=== PATIENT | female | born 1995 ===

== ENCOUNTER 2018-09-10 18:54 | Inpatient (IN) | payer OTHER ==
[2018-09-10 19:34] LABS: BHCG - Serum Negative (NEGATIVE); Pregs Control Background? CLEAR/WHITE (CLR/WHITE); Pregs Control Bar Appear? YES (CONTROL BAR)
[2018-09-10 19:38] LABS: Band 2 % (5-11); Eosinophils 1 % (0-10); Hemoglobin 12.9 g/dL (12.0-16.0); Lymphocytes 30 % (21-51); MDiff Complete? YES; Mean Corpuscular HGB CONC 32.4 g/dL (32.0-36.0); Mean Corpuscular Hemoglobin 29.2 pg (27.0-31.0); Mean Corpuscular Volume 90.3 fL (78.0-98.0); Mean Platelet Volume 8.3 fL (7.4-10.4); Monocytes 5 % (0-10); Neutrophil 57 % (42-75); PLT Morphology Comment Appears Adequate; Platelet Count 203 thou/uL (130-400); RBC Distribution Width 11.5 % (11.5-14.5); Reactive Lymphocytes 4 % (0-10); Red Blood Cell (RBC) Count 4.42 mill/uL (4.20-5.40); White Blood Cell (WBC) Count 7.2 thou/uL (4.8-10.8)
[2018-09-10 19:45] LABS: Anion Gap 14 mmol/L (10-20); BUN (Urea Nitrogen) 8 mg/dL (7.0-18.7); Calc. Creatinine Clearance 0 mL/min (70-130); Calcium 9.6 mg/dL (7.8-10.44); Carbon Dioxide 24 mmol/L (22-29); Chloride 106 mmol/L (98-107); Estimated GFR-MDRD 76; Glucose 85 mg/dL (70-105); Potassium 4.1 mmol/L (3.5-5.1); Sodium 140 mmol/L (136-145)
[2018-09-10 20:01] LABS: CK (CPK) 29352 U/L (29-168)
[2018-09-10 22:10] VITALS: BMI 25.2
[2018-09-10] MEDS ORDERED: Ondansetron ODT 4 MG TAB SL PRN (22:13)
[2018-09-10] MEDS ORDERED: Ondansetron HCl/PF 4 MG/2 ML Vial IVP PRN (22:13)
[2018-09-10] MEDS: Sodium Chloride 0.9% 1,000 ML IV SCH (22:20)
[2018-09-10 23:57] LABS: Anion Gap 9 mmol/L (10-20); BUN (Urea Nitrogen) 8 mg/dL (7.0-18.7); Calc. Creatinine Clearance 145 mL/min (70-130); Calcium 8.4 mg/dL (7.8-10.44); Carbon Dioxide 23 mmol/L (22-29); Chloride 110 mmol/L (98-107); Estimated GFR-MDRD Greater than 90; Glucose 91 mg/dL (70-105); Sodium 138 mmol/L (136-145)
[2018-09-11 00:24] LABS: CK (CPK) 21130 U/L (29-168)
[2018-09-11] MEDS: Acetaminophen 325 MG TAB PO PRN ×4 (00:30→20:08)
[2018-09-11] MEDS: Sodium Chloride 0.9% 1,000 ML IV SCH ×2 (11:45→16:00)
[2018-09-11 12:43] LABS: Anion Gap 7 mmol/L (10-20); BUN (Urea Nitrogen) 6 mg/dL (7.0-18.7); Calc. Creatinine Clearance 160 mL/min (70-130); Calcium 8.1 mg/dL (7.8-10.44); Carbon Dioxide 22 mmol/L (22-29); Chloride 112 mmol/L (98-107); Estimated GFR-MDRD Greater than 90; Glucose 84 mg/dL (70-105); Potassium 3.9 mmol/L (3.5-5.1); Sodium 137 mmol/L (136-145)
[2018-09-11] MEDS ORDERED: Guaifenesin DM 100-10/5 ML UDCUP PO PRN (13:25)
[2018-09-11 16:16] LABS: #Basophils 0.1 thou/uL (0.0-0.2); #Eosinphils 0.1 thou/uL (0.0-0.7); #Monocytes 0.4 thou/uL (0.11-0.59); %Basophils 1.2 % (0.0-1.0); %Eosinophils 2.7 % (0.0-10.0); %Lymphocytes 43.1 % (21.0-51.0); %Monocytes 9.3 % (0.0-10.0); %Neutrophils 43.8 % (42.0-75.0); Hemoglobin 11.5 g/dL (12.0-16.0); Mean Corpuscular HGB CONC 32.2 g/dL (32.0-36.0); Mean Corpuscular Hemoglobin 30.5 pg (27.0-31.0); Mean Corpuscular Volume 94.8 fL (78.0-98.0); Mean Platelet Volume 7.6 fL (7.4-10.4); Platelet Count 187 thou/uL (130-400); RBC Distribution Width 11.3 % (11.5-14.5); Red Blood Cell (RBC) Count 3.77 mill/uL (4.20-5.40); White Blood Cell (WBC) Count 4.5 thou/uL (4.8-10.8)
[2018-09-11 16:28] LABS: CK (CPK) 14947 U/L (29-168)
[2018-09-11] MEDS: Famotidine 20 MG TAB PO SCH (19:56)
--- NOTE | 2018-09-11 21:38 | HP ---
REASON FOR ADMISSION: Acute rhabdomyolysis. HISTORY OF PRESENTING ILLNESS: The patient gives history of working out/ intense exercises from Friday on her both upper extremities. She started to develop swelling in her upper extremities and pain. On Friday, this got worse. She normally exercises on a regular basis, but has been doing increased workup from Friday on for her upper extremities. Her CK levels were 23,000 and patient was admitted from the ER. Has no complaints of chest pain or palpitation. No complaints of shortness of breath. No history of hereditary diseases or sickle cell/hemoglobinopathy. PAST MEDICAL/SURGICAL HISTORY: Adenoidectomy, myringotomy tubes placed when she was a kid and attention deficit disorder. CURRENT MEDICATIONS: Takes control pills, Vyvanse. ALLERGIES: No known drug allergies. PERSONAL HISTORY: Does not abuse alcohol or drugs. No history of smoking. She is a [employer] student. FAMILY HISTORY: Both parents are healthy. CODE STATUS: FULL. REVIEW OF SYSTEMS: The following complete review of systems was negative, unless otherwise mentioned in the HPI or below: Constitutional: Weight loss or gain, ability to conduct usual activities. Skin: Rash, itching. Eyes: Double vision, pain. ENT/Mouth: Nose bleeding, neck stiffness, pain, tenderness. Cardiovascular: Palpitations, dyspnea on exertion, orthopnea. Respiratory: Shortness of breath, wheezing, cough, hemoptysis, fever or night sweats. Gastrointestinal: Poor appetite, abdominal pain, heartburn, nausea, vomiting, constipation, or diarrhea. Genitourinary: Urgency, frequency, dysuria, nocturia. Musculoskeletal: Pain, swelling. Neurologic/Psychiatric: Anxiety, depression. Allergy/Immunologic: Skin rash, bleeding tendency. PHYSICAL EXAMINATION: GENERAL: The patient is a 23-year-old female who is currently not in any acute distress. VITAL SIGNS: Blood pressure 116/82, pulse 80 per minute, respiratory rate 20 per minute, temperature 98.9 degrees Fahrenheit, saturating 100% on room air. NECK: Supple, no elevated JVD. EYES: Extraocular muscles intact. Pupils reacting to light. ORAL CAVITY: Mucous membranes are moist. No exudates or congestion. CARDIOVASCULAR SYSTEM: S1, S2 heard. Regular rhythm. RESPIRATORY SYSTEM: Air entry 2+ bilateral. No rales or rhonchi. ABDOMEN: Soft, bowel sounds heard. No tenderness, rigidity or guarding. EXTREMITIES: No peripheral edema or calf tenderness. VASCULAR SYSTEM: Peripheral pulses 2+ bilateral, no ischemic ulcerations or gangrene. CENTRAL NERVOUS SYSTEM: No gross focal deficits noted. Patient is alert, awake , oriented well. PSYCHIATRIC SYSTEM: The patient's mood is euthymic. No hallucinations or delusions. LABORATORY DATA: White count of 7, hemoglobin and hematocrit 12 and 39, platelet count 203 with 57% neutrophils. Electrolytes are stable. BUN 8, creatinine 0.9, serum bicarbonate 24. CK level is 29,352. Serum test is negative. CLINICAL IMPRESSION AND PLAN: Patient will be admitted to medical floor for acute rhabdomyolysis due to the intense exercises. She will be on normal saline at 100 mL per hour. We will follow up with serial CK levels. We will continue her oral contraceptive as before. She can use her home dose of Vyvanse for ADD. Discussed her findings and the current plan with patient and her mom who is here at bedside. SHO
[2018-09-12] MEDS: Sodium Chloride 0.9% 1,000 ML IV SCH ×3 (01:00→20:44)
[2018-09-12 05:14] LABS: #Eosinphils 0.1 thou/uL (0.0-0.7); #Lymphocytes 2.1 thou/uL (1.20-3.40); #Monocytes 0.4 thou/uL (0.11-0.59); %Basophils 0.6 % (0.0-1.0); %Eosinophils 3.2 % (0.0-10.0); %Lymphocytes 45.7 % (21.0-51.0); %Monocytes 7.6 % (0.0-10.0); %Neutrophils 42.9 % (42.0-75.0); Hemoglobin 11.5 g/dL (12.0-16.0); Mean Corpuscular Hemoglobin 31.3 pg (27.0-31.0); Mean Corpuscular Volume 94.8 fL (78.0-98.0); Mean Platelet Volume 7.7 fL (7.4-10.4); Platelet Count 193 thou/uL (130-400); RBC Distribution Width 11.2 % (11.5-14.5); Red Blood Cell (RBC) Count 3.69 mill/uL (4.20-5.40); White Blood Cell (WBC) Count 4.6 thou/uL (4.8-10.8)
[2018-09-12 05:34] LABS: Anion Gap 9 mmol/L (10-20); BUN (Urea Nitrogen) 7 mg/dL (7.0-18.7); Calc. Creatinine Clearance 155 mL/min (70-130); Calcium 8.4 mg/dL (7.8-10.44); Carbon Dioxide 24 mmol/L (22-29); Chloride 110 mmol/L (98-107); Estimated GFR-MDRD Greater than 90; Glucose 91 mg/dL (70-105); Potassium 3.5 mmol/L (3.5-5.1); Sodium 139 mmol/L (136-145)
[2018-09-12] MEDS: Famotidine 20 MG TAB PO SCH ×2 (08:58→20:44)
[2018-09-12] MEDS: Enoxaparin Sodium 40 MG/0.4 ML SYRINGE SC SCH (08:59)
[2018-09-12] MEDS ORDERED: NORETHINDRONE AC ETH ESTRADIOL PO SCH (09:00)
--- NOTE | 2018-09-12 10:30 | PDOC.PN ---
- Subjective Encounter Start Date: 09/12/18 Encounter Start Time: 10:27 Doing well. Still has some muscle soreness. Ambulating. Has some edema in the arms. - Objective Resuscitation Status: Resuscitation Status FULL:Full Resuscitation Vital Signs & Weight: Vital Signs (12 hours) Temp Pulse Resp BP Pulse Ox 09/12/18 08:00 98.1 F 72 16 112/70 97 Weight Weight 175 lb 8 oz Result Diagrams: 09/12/18 04:29 09/12/18 04:29 Phys Exam - Physical Examination Constitutional: NAD Respiratory: no wheezing, no rales, no rhonchi, clear to auscultation bilateral Cardiovascular: RRR, no significant murmur Gastrointestinal: soft, non-tender, no distention Modest edema and TTP of the UE's. Psychiatric: normal affect, A&O x 3 Dx/Plan (1) Rhabdomyolysis Code(s): M62.82 - RHABDOMYOLYSIS Status: Acute - Plan * Long discussion with patient and her mother. Discussed appropriate exercise and warning signs. * Will continue IVF and recheck CK in am. * Ambulate. * Swelling will resolve. Likely secondary to the muscle injury and the IVF. * Renal function appears unaffected.
[2018-09-13 06:03] LABS: Anion Gap 9 mmol/L (10-20); BUN (Urea Nitrogen) 7 mg/dL (7.0-18.7); Calc. Creatinine Clearance 149 mL/min (70-130); Calcium 8.4 mg/dL (7.8-10.44); Carbon Dioxide 25 mmol/L (22-29); Chloride 109 mmol/L (98-107); Estimated GFR-MDRD Greater than 90; Glucose 87 mg/dL (70-105); Potassium 3.8 mmol/L (3.5-5.1); Sodium 139 mmol/L (136-145)
[2018-09-13 06:16] LABS: CK (CPK) 6622 U/L (29-168)
[2018-09-13] MEDS: Sodium Chloride 0.9% 1,000 ML IV SCH ×4 (06:25→20:27)
[2018-09-13] MEDS: Enoxaparin Sodium 40 MG/0.4 ML SYRINGE SC SCH (10:04)
[2018-09-13] MEDS: Famotidine 20 MG TAB PO SCH ×2 (10:05→20:26)
[2018-09-13] MEDS: Acetaminophen 325 MG TAB PO PRN (10:08)
--- NOTE | 2018-09-13 17:58 | PDOC.PN ---
- Subjective Encounter Start Date: 09/13/18 Encounter Start Time: 08:45 Doing well. Still has some soreness in the left forearm/brachioradialis area, but otherwise swelling and stiffness have improved. Has been ambulating well and drinking ample fluids. - Objective Resuscitation Status: Resuscitation Status FULL:Full Resuscitation Vital Signs & Weight: Vital Signs (12 hours) Temp Pulse Resp BP Pulse Ox 09/13/18 08:00 98.2 F 62 16 116/78 99 Weight Weight 175 lb 8 oz I&O: 09/12/18 09/13/18 09/14/18 06:59 06:59 06:59 Intake Total 1700 2950 Balance 1700 2950 Result Diagrams: 09/12/18 04:29 09/13/18 05:02 Phys Exam - Physical Examination Constitutional: NAD Less edema of the UE's. TTP left brachioradialis. Not quite full ext. of left elbow due to soreness. Dx/Plan (1) Rhabdomyolysis Code(s): M62.82 - RHABDOMYOLYSIS Status: Acute - Plan * Bumped up the fluids hoping to get her down to below 5,000 this evening, but her numbers are still 5,833. Will continue IVF and recheck in am. Discussed her rest period and approach to resuming exercise after discharge.
[2018-09-14] MEDS: Sodium Chloride 0.9% 1,000 ML IV SCH (04:03)
[2018-09-14 05:40] LABS: Anion Gap 10 mmol/L (10-20); BUN (Urea Nitrogen) 9 mg/dL (7.0-18.7); CK (CPK) 3508 U/L (29-168); Calc. Creatinine Clearance 145 mL/min (70-130); Calcium 8.6 mg/dL (7.8-10.44); Carbon Dioxide 25 mmol/L (22-29); Chloride 109 mmol/L (98-107); Estimated GFR-MDRD Greater than 90; Glucose 89 mg/dL (70-105); Potassium 3.6 mmol/L (3.5-5.1); Sodium 140 mmol/L (136-145)
[2018-09-14] MEDS: Enoxaparin Sodium 40 MG/0.4 ML SYRINGE SC SCH (07:45)
[2018-09-14] MEDS: Famotidine 20 MG TAB PO SCH (07:45)
[2018-09-14 07:49] VITALS: BP 120/81; TEMP 98.4
--- NOTE | 2018-09-14 08:20 | DIS ---
DATE OF ADMISSION: 09/10/2018 DATE OF DISCHARGE: 09/14/2018 DISCHARGE DIAGNOSIS: Rhabdomyolysis. HISTORY: The patient is a 23-year-old female, who had been doing some exercises with an exercise cla ss and was subsequently put through a more aggressive upper extremity workout. The patient had some pain and swelling in the muscles of her arms and presented to an urgent care clinic. There labs were drawn, and her CK was 25,000. She was subsequently referred to the emergency department. The patie nt had evidence of some inflammation of the muscles on her exam and repeat labs showed a CK of 29,352 . HOSPITAL COURSE: The patient was admitted to the hospital with rhabdomyolysis. She was started on a ggressive fluid hydration, and over subsequent days, her CK did continue to drop. She still had some swelling and inflammation of her upper extremities that was improving. She still had some soreness and tightness in her left upper extremity in the brachioradialis area where she was having a little b it of difficulty fully extending the arm, but it was appearing to improve. Ultimately, she was eatin g well and pushing fluids orally, ambulating well. Her CK was down to 3508 and she was felt to be st able for discharge to home. On the day of discharge, temperature 98.4, pulse 72, respirations 16, O2 sat 99% on room air, BP 120/81. She has just modest edema of the upper extremities, but it is impro rigoberto. It is far less tender. She still has some tenderness around the left proximal forearm area. DISPOSITION: The patient is discharged to home. She is to continue her usual home medications to in clude Junel 1 p.o. daily. She is to continue to push fluids and she is to have a regular diet and he r activity level is limited. She is to start working more aggressively on some stretching exercises of her left upper extremity in order to get full range of motion and overcome some of the soreness th at is there. She is to have no formal exercise for at least 7-10 days. She is to follow up with a [facility] provider within 2 days. She does not have an established PCP, but believes she can return to the Urgent Care Clinic where she initially presented and have her numbers rechecked. She can return to the emergency department should she have any problems prior to that time. Of note, the patient's renal function remained extremely good throughout with no change in her BUN or creatinine.
== END 2018-09-14 10:30 | disposition home or self-care (01) | DRG 558 ==
LOC: SCSER 18:54 → T4-B 20:09
PROVIDERS: ADMIT Hospitalist; ATTEND Hospitalist
DX: M62.82 Rhabdomyolysis (principal); R60.0 Localized edema
CPT/HCPCS: 36415; 80048; 82550; 84703; 85025; 90471; 90686; 96360; 96361; G0008; J1650